=== PATIENT | male | born 1970 | race Two or more races ===

== ENCOUNTER 2019-02-15 20:27 | Emergency (ER) | payer BC ==
--- NOTE | 2019-02-15 20:52 | ER Document Report ---
ED Medical Screen (RME) - General Chief Complaint: Abdominal Pain Stated Complaint: ABDOMINAL PAIN Time Seen by Provider: 02/15/19 20:49 Primary Care Provider: RENE BURDICK MD [Primary Care Provider] - Follow up as needed Information source: Patient Notes: Patient presents complaining of periumbilical pain that started yesterday. Patient denies any nausea vomiting or diarrhea. Patient took Pepcid at home to help manage his symptoms. I have greeted and performed a rapid initial assessment of this patient. A comprehensive ED assessment and evaluation of the patient, analysis of test results and completion of the medical decision making process will be conducted by additional ED providers. TRAVEL OUTSIDE OF THE [place] IN LAST 30 DAYS: No - Related Data Allergies/Adverse Reactions: No Known Allergies Allergy (Unverified 06/20/14 14:49) Past Medical History - Social History Chew tobacco use (# tins/day): No Frequency of alcohol use: None Drug Abuse: None Past Surgical History: Reports: Hx Thyroid Surgery - Removal - Immunizations Hx Diphtheria, Pertussis, Tetanus Vaccination: No - Unknown Physical Exam - Vital signs Vitals: Temp Pulse Resp BP Pulse Ox 97.9 F 59 L 20 142/79 H 99 02/15/19 20:42 02/15/19 20:42 02/15/19 20:42 02/15/19 20:42 02/15/19 20:42 - Abdominal Tenderness: Tender - Periumbilical Course - Vital Signs Vital signs: Temp Pulse Resp BP Pulse Ox 97.9 F 59 L 20 142/79 H 99 02/15/19 20:42 02/15/19 20:42 02/15/19 20:42 02/15/19 20:42 02/15/19 20:42 Doctor's Discharge - Discharge Referrals: RENE BURDICK MD [Primary Care Provider] - Follow up as needed
[2019-02-15] MEDS ORDERED: KETOROLAC TROMETHAMINE INJ/PF 30 MG/1 ML SDV IV ONE (21:02)
[2019-02-15] MEDS ORDERED: ONDANSETRON HCL INJ/PF 4 MG/2 ML SDV IV ONE (21:03)
[2019-02-15] MEDS ORDERED: NORMAL SALINE 1000 ML 1,000 ML IV ONE (21:03)
--- NOTE | 2019-02-15 21:07 | ER Document Report ---
ED GI/ - General Chief Complaint: Abdominal Pain Stated Complaint: ABDOMINAL PAIN Time Seen by Provider: 02/15/19 20:49 Primary Care Provider: RENE BURDICK MD [NO LOCAL MD] - Follow up as needed Notes: Patient is a 48-year-old male that comes to the emergency department for chief complaint of upper abdominal pain (he points to the epigastric area). Symptoms started last night, he states he barely ate anything today because of the pain. He reports nausea but denies vomiting, fever/chills. He had an unremarkable bowel movement at 4 PM. He denies alcohol. He denies chest pain or shortness of breath. He was taking Pepcid earlier hoping that would help with his symptoms but the pain is not resolved. Only past medical history reported is thyroidectomy. TRAVEL OUTSIDE OF THE [place] IN LAST 30 DAYS: No - Related Data Allergies/Adverse Reactions: No Known Allergies Allergy (Unverified 06/20/14 14:49) Past Medical History - General Information source: Patient - Social History Smoking Status: Never Smoker Chew tobacco use (# tins/day): No Frequency of alcohol use: None Drug Abuse: None Lives with: Family Family History: Reviewed & Not Pertinent Patient has suicidal ideation: No Patient has homicidal ideation: No Past Surgical History: Reports: Hx Thyroid Surgery - Removal - Immunizations Hx Diphtheria, Pertussis, Tetanus Vaccination: No - Unknown Review of Systems - Review of Systems Constitutional: No symptoms reported EENT: No symptoms reported Cardiovascular: No symptoms reported Respiratory: No symptoms reported Gastrointestinal: See HPI Genitourinary: No symptoms reported Male Genitourinary: No symptoms reported Musculoskeletal: No symptoms reported Skin: No symptoms reported Hematologic/Lymphatic: No symptoms reported Neurological/Psychological: No symptoms reported Physical Exam - Vital signs Vitals: Temp Pulse Resp BP Pulse Ox 97.9 F 59 L 20 142/79 H 99 02/15/19 20:42 02/15/19 20:42 02/15/19 20:42 02/15/19 20:42 02/15/19 20:42 - Notes Notes: GENERAL: Alert, interacts well. No acute distress. HEAD: Normocephalic, atraumatic. EYES: Pupils equal, round, and reactive to light. Extraocular movements intact. ENT: Oral mucosa moist, tongue midline. Oropharynx unremarkable. NECK: Full range of motion. Supple. Trachea midline. LUNGS: Clear to auscultation bilaterally, no wheezes, rales, or rhonchi. No respiratory distress. HEART: Regular rate and rhythm. No murmur ABDOMEN: Tenderness with wincing over the epigastric area. Mild generalized upper abdominal tenderness, lower abdomen is completely benign. GENITOURINARY: Deferred EXTREMITIES: Moves all 4 extremities spontaneously. No edema, normal radial and dorsalis pedis pulses bilaterally. No cyanosis. BACK: No CVA tenderness. No cervical, thoracic, lumbar midline tenderness. No saddle anesthesia, normal distal neurovascular exam. Moves all extremities in full range of motion. NEUROLOGICAL: Alert and oriented x3. Normal speech. Cranial nerves II through XII grossly intact. PSYCH: Normal affect, normal mood. SKIN: Warm, dry, normal turgor. No rashes or lesions noted. Course - Re-evaluation Re-evalutation: Patient's kenaitze language is [place]i, I offered an yard caller, his is at bedside and speaks very good [place]ian, he requests she be the animal science professor instead. Patient does have epigastric pain on evaluation, however CBC, chemistry, lipase, and urinalysis are all unremarkable. Right upper quadrant ultrasound is also unremarkable. I suspect that this is gastritis based on his overall clinical picture. Patient doing much better after medications, able to tolerate p.o. I discussed this in detail, discussed follow-up, discussed return precautions. They state appreciation and agreement. Stable at time of discharge. - Vital Signs Vital signs: Temp Pulse Resp BP Pulse Ox 98.3 F 58 L 16 118/78 100 02/16/19 00:56 02/16/19 00:56 02/16/19 00:56 02/16/19 00:56 02/16/19 00:56 - Laboratory Result Diagrams: 02/15/19 21:06 02/15/19 21:06 Laboratory results interpreted by me: 02/15/19 02/15/19 02/15/19 20:55 21:06 21:06 RBC 5.69 H Glucose 112 H Urine Ketones 20 H Discharge - Discharge Clinical Impression: Epigastric pain Condition: Stable Disposition: HOME, SELF-CARE Additional Instructions: Your ultrasound and laboratory work-up are reassuring. Your evaluation is most consistent with gastritis (inflammation of your upper gastrointestinal tract). Take Phenergan for nausea, take Carafate and omeprazole as prescribed to help treat this, you can take your Pepcid, Tums, Maalox, etc. if needed. You can take Tylenol for pain. Avoid NSAIDs, alcohol, smoking, caffeine, spicy food. Start with clear fluids, progress to bland diet. Follow-up with primary care for additional evaluation and treatment including possible H. pylori testing. Return if you worsen including uncontrolled vomiting, vomiting blood, black stools, severe pain, fever of 100.4 or greater, or any other concerning or worsening symptoms. Prescriptions: Sucralfate [Carafate 1 gm Tablet] 1 gm PO QID #20 tablet Omeprazole 40 mg PO DAILY #30 capsule. Promethazine HCl [Phenergan 25 mg Tablet] 25 mg PO Q6H PRN #20 tablet PRN Reason: Forms: Return to Work Referrals: RENE BURDICK MD [NO LOCAL MD] - Follow up as needed
[2019-02-15 21:24] LABS: ABSOLUTE LYMPHOCYTES (AUTO) 1.8 10^3/uL (0.5-4.7); ABSOLUTE MONOCYTES (AUTO) 0.6 10^3/uL (0.1-1.4); BASOPHILS % (AUTO) 0.3 % (0-2); EOSINOPHILS % (AUTO) 0.3 % (0-6); HEMATOCRIT 47.4 % (37.9-51.0); HEMOGLOBIN 15.4 g/dL (13.5-17.0); LYMPHOCYTES % (AUTO) 19.2 % (13-45); MEAN CORPUSCULAR HEMOGLOBIN 27.1 pg (27.0-33.4); MEAN CORPUSCULAR HGB CONC 32.5 g/dL (32.0-36.0); MEAN CORPUSCULAR VOLUME 83 fl (80-97); PLATELET COUNT 240 10^3/uL (150-450); RED BLOOD COUNT 5.69 10^6/uL (4.35-5.55); RED CELL DISTRIBUTION WIDTH 12.4 % (11.5-14.0); SEGMENTED NEUTROPHILS % (AUTO) 74.2 % (42-78); TOTAL CELLS COUNTED % (AUTO) 100 %; WHITE BLOOD COUNT 9.4 10^3/uL (4.0-10.5)
[2019-02-15 21:31] LABS: APPEARANCE,URINE CLEAR; BILIRUBIN,URINE NEGATIVE (NEGATIVE); COLOR,URINE YELLOW; GLUCOSE, URINE NEGATIVE (NEGATIVE); KETONES,URINE 20 mg/dL (NEGATIVE); LEUKOCYTE ESTERASE,URINE NEGATIVE (NEGATIVE); NITRITE,URINE NEGATIVE (NEGATIVE); PROTEIN,URINE NEGATIVE (NEGATIVE); URINE SPECIFIC GRAVITY 1.019; UROBILINOGEN,URINE NEGATIVE mg/dL (<2.0)
[2019-02-15 21:53] LABS: ALBUMIN 4.3 g/dL (3.5-5.0); ALKALINE PHOSPHATASE 60 U/L (38-126); ANION GAP 12 (5-19); ASPARTATE AMINO TRANSFERASE 23 U/L (17-59); BILIRUBIN,TOTAL 0.5 mg/dL (0.2-1.3); BLOOD UREA NITROGEN 12 mg/dL (7-20); CALCIUM 9.6 mg/dL (8.4-10.2); CARBON DIOXIDE 25 mmol/L (22-30); CHLORIDE 104 mmol/L (98-107); GLUCOSE 112 mg/dL (75-110); POTASSIUM 3.8 mmol/L (3.6-5.0); TOTAL PROTEIN 7.7 g/dL (6.3-8.2)
--- NOTE | 2019-02-15 23:07 | RADIOLOGY REPORT (SQ) ---
EXAM DESCRIPTION: US ABDOMEN LIMITED COMPLETED DATE/TME: 02/15/2019 21:02 CLINICAL HISTORY: 48 years Male, epigastric pain Comparison: None. LIMITATIONS: None. FINDINGS: Gallbladder, negative sonographic Pyle's test, liver, a 0.4-cm diameter common bile duct, no intrahepatic ductal dilation, hepatopetal patent flow of the portal vein, 10-cm right kidney, pancreas, visualized vasculature/abdominal aorta, and no significant ascites appear otherwise unremarkable. IMPRESSION: Normal RUQ-Abdominal Sonogram.
[2019-02-15] MEDS ORDERED: OXYCODONE-ACETAMINOPHEN 5-325 MG TABLET PO ONE (23:40)
[2019-02-15] MEDS ORDERED: PROMETHAZINE HCL 25 MG TABLET PO ONE (23:40)
[2019-02-15] MEDS ORDERED: SUCRALFATE 1 GM TABLET PO ONE (23:41)
[2019-02-16] MEDS ORDERED: HYDROCODONE/ACETAMINOPHEN 5-325 MG (6 TAB/ER DISP) PO PRN (00:43)
[2019-02-16 00:56] VITALS: BP 118/78
== END 2019-02-16 01:04 | disposition home or self-care (01) ==
LOC: ER 20:27
DX: R10.13 Epigastric pain (principal); R11.0 Nausea
CPT/HCPCS: 99284; 96361; 96374; 96375; 36415; 83690; 85025; 80053; 81001; 76705; J1885; J2405; J7030